=== PATIENT | female | born 1970 ===

== ENCOUNTER 2018-04-30 19:10 | Emergency (ER) | payer SELFPAY ==
[2018-04-30 19:16] VITALS: BMI 20.4
[2018-04-30 19:21] VITALS: RESP 18; TEMP 98.8
[2018-04-30] MEDS ORDERED: Apap-Butalbital-Caffeine 325-50-40mg Tab PO ONE (19:42)
--- NOTE | 2018-04-30 19:47 | ED PDOC ---
Arrival/HPI - General Historian: Patient - History of Present Illness Time/Duration: < week Symptom Onset: Gradual Symptom Course: Intermittent Severity Level: 3, Mild <Sol Robbins - Last Filed: 04/30/18 21:54> <MandyfaniTo alfred DO - Last Filed: 05/01/18 02:45> - General Chief Complaint: Headache Time Seen by Provider: 04/30/18 19:20 - History of Present Illness Narrative History of Present Illness (Text): 04/30/18 19:43 Patient is a 48 year old female with no significant past medical history who presented to the ED for intractable headache. Patient states that she does have a history of headaches in the past that last approximately 2-3 days. She reports that this headache started 5 days ago and has not gone away which prompted todays visit. Headache is intermittent and diffuse in nature. At its worse, pain is 8/10. Currently rates the pain a 3/10. She reports taking Tylenol 1 hour prior to arrival with relief in symptoms. Exacerbating factors include light and movement. Headaches are associated with nausea and dizziness. At this time she states that the headache is mild, denies dizziness, changes in vision/hearing, cp, palpitations, sob, abdominal pain, urinary symptoms. Patient recently immigrated from [facility] 1 month ago. LMP 04/30/18. (Sol Robbins) Past Medical History - Provider Review Nursing Documentation Reviewed: Yes - Past History Past History: No Previous - Infectious Disease Hx of Infectious Diseases: None - Past Medical History Past Medical History: No Previous - Cardiac Hx Cardiac Disorders: No - Pulmonary Hx Respiratory Disorders: No - Neurological Hx Neurological Disorder: No - HEENT Hx HEENT Disorder: No - Renal Hx Renal Disorder: No - Endocrine/Metabolic Hx Endocrine Disorders: No - Hematological/Oncological Hx Blood Disorders: No - Psychiatric Hx Substance Use: No - Surgical History Hx Appendectomy: Yes Hx Cholecystectomy: Yes - Anesthesia Hx Anesthesia Reactions: No Hx Malignant Hyperthermia: No <Sol Robbins - Last Filed: 04/30/18 21:54> Family/Social History - Physician Review Nursing Documentation Reviewed: Yes Family/Social History: Diabetes, Hypertension Smoking Status: Never Smoked Hx Alcohol Use: No Hx Substance Use: No <Sol Robbins - Last Filed: 04/30/18 21:54> Allergies/Home Meds <Sol Robbins - Last Filed: 04/30/18 21:54> <Polina To - Last Filed: 05/01/18 02:45> Allergies/Adverse Reactions: Allergies No Known Allergies Allergy (Verified 04/30/18 19:42) Review of Systems - Physician Review All systems were reviewed & negative as marked: Yes - Review of Systems Constitutional: Normal. absent: Fatigue, Fevers Eyes: Normal, Photophobia. absent: Vision Changes ENT: Normal. absent: Hearing Changes Respiratory: Normal. absent: SOB, Cough, Wheezing Cardiovascular: Normal. absent: Chest Pain, Palpitations, Calf Pain Gastrointestinal: Nausea. absent: Abdominal Pain, Constipation, Diarrhea, Vomiting Genitourinary Female: absent: Dysuria, Frequency, Hematuria Neurological: Headache. absent: Dizziness <Sol Robbins - Last Filed: 04/30/18 21:54> Physical Exam Vital Signs Reviewed: Yes Temperature: Afebrile Pulse: Regular Respiratory Rate: Normal Appearance: Positive for: Well-Appearing, Non-Toxic, Comfortable Pain Distress: Mild Mental Status: Positive for: Alert and Oriented X 3 - Systems Exam Head: Present: Atraumatic, Normocephalic Pupils: Present: PERRL Extroacular Muscles: Present: EOMI Conjunctiva: Present: Normal Mouth: Present: Moist Mucous Membranes Neck: Present: Normal Range of Motion Respiratory/Chest: Present: Clear to Auscultation, Good Air Exchange. No: Respiratory Distress Cardiovascular: Present: Regular Rate and Rhythm, Normal S1, S2 Abdomen: Present: Normal Bowel Sounds. No: Tenderness, Distention Back: Present: Normal Inspection Lower Extremity: Present: Normal Inspection Neurological: Present: CN II-XII Intact Skin: Present: Warm, Dry, Normal Color Psychiatric: Present: Alert, Oriented x 3 <Sol Robbins - Last Filed: 04/30/18 21:54> <To Fish DO - Last Filed: 05/01/18 02:45> Vital Signs Temp Pulse Resp BP Pulse Ox 04/30/18 20:09 98.8 F 68 18 140/78 98 04/30/18 19:11 98.8 F 72 18 145/81 97 Medical Decision Making <Sol Robbins - Last Filed: 04/30/18 21:54> <To Fish DO - Last Filed: 05/01/18 02:45> ED Course and Treatment: 04/30/18 19:49 Patient seen and examined at bedside. States that she is having a mild headache. Will order NS bolus, Reglan and Fioricet. 04/30/18 20:00 Patient is refusing IV fluids and Reglan. States that she just wants medication so she can go home. Will discharge with Fioricet and have patient establish care with the [facility]. (Sol Robbins) - Medication Orders Current Medication Orders: Discontinued Medications Acetaminophen/Butalbital/Caffeine (Fioricet) 1 tab PO ONCE ONE Stop: 04/30/18 19:43 Last Admin: 04/30/18 19:56 Dose: 1 tab MAR Pain Assessment Document 04/30/18 19:56 AURE (Rec: 04/30/18 19:56 LA [id number]) Pain Reassessment Is this a pain reassessment? No Sleep Is patient sleeping during reassessment? No Presence of Pain Presence of Pain Yes Pain Scale Used Pain Scale Used Numeric Location Pain Location Body Industrial Relations Officer Description Description Constant Intensity of Pain at present 8 Pain Behavior Guarding Sodium Chloride (Sodium Chloride 0.9%) 1,000 mls @ 999 mls/hr IV .Q1H1M STA Stop: 04/30/18 20:42 Last Admin: 04/30/18 20:01 Dose: Not Given Non-Admin Reason: Patient Refused Metoclopramide HCl (Reglan) 10 mg IVP STAT STA Stop: 04/30/18 19:43 Last Admin: 04/30/18 20:03 Dose: Not Given Non-Admin Reason: Patient Refused Comments: Pt refused IVP Administration Document 04/30/18 20:03 AURE (Rec: 04/30/18 19:56 AURE [id number]) Charges for Administration # of IVP Administrations 1 - PA / PRODUCTION WEIGHER / Resident Statement HEMA has reviewed & agrees with the documentation as recorded. HEMA has examined the patient and agrees with the treatment plan. <To Fish DO - Last Filed: 05/01/18 02:45> Disposition/Present on Arrival - Present on Arrival Any Indicators Present on Arrival: No History of DVT/PE: No History of Uncontrolled Diabetes: No Urinary Catheter: No History of Decub. Ulcer: No History Surgical Site Infection Following: None - Disposition Have Diagnosis and Disposition been Completed?: Yes Disposition Time: 20:05 Patient Plan: Discharge <Sol Robbins - Last Filed: 04/30/18 21:54> - Disposition Disposition Time: 19:50 <To Fish DO - Last Filed: 05/01/18 02:45> - Disposition Diagnosis: Headache Disposition: HOME/ ROUTINE Condition: GOOD Discharge Instructions (ExitCare): Headache, Adult (DC) Print Language: FRENCH Additional Instructions: ARIANA ALY, thank you for letting us take care of you today. Your provider was To Fish DO and you were treated for HEADACHE. The emergency medical care you received today was directed at your acute symptoms. If you were prescribed any medication, please fill it and take as directed. It may take several days for your symptoms to resolve. Return to the Emergency Department if your symptoms worsen, do not improve, or if you have any other problems. Please contact your doctor or call one of the physicians/clinics you have been referred to that are listed on the Patient Visit Information form that is included in your discharge packet. Bring any paperwork you were given at discharge with you along with any medications you are taking to your follow up visit. Our treatment cannot replace ongoing medical care by a primary care provider outside of the emergency department. Thank you for allowing the [facility] team to be part of your care today. Follow up with the clinic in 3-5 days for re-evaluation and further management. ARIANA ALY, natalie por dejarnos atenderlo hoy. Rios proveedor fue To Fish DO y usted recibi tratamiento por HEADACHE. La atencin mdica de emergencia que recibi hoy estaba dirigida a [place] sntomas agudos. Si le prescribieron algn medicamento, llnelo y tome segn las indicaciones. [place] s ntomas pueden tardar varios diaz en resolverse. Regrese al Departamento de Emergencia si [place] sntomas empeoran, no mejoran o si tiene algn otro problema. Comunquese con rios mdico o llame a fara de los mdicos / clnicas a los que ng sido referido que figura en el formulario de Informacin de visita del paciente que se incluye en rios paquete de ronald. Traiga todos los documentos que recibi al momento del ronald junto con los medicamentos que est tomando en rios visita de seguimiento. Nuestro tratamiento no puede reemplazar la atencin mdica en curso por un proveedor de atencin primaria fuera del departamento de emergencia. Natalie por permitir que el equipo de [facility] sea parte de rios cuidado hoy. Mike un seguimiento con la clnica en 3-5 diaz para la reevaluacin y la administracin adicional. Prescriptions: Acetaminophen/Butalbital/Caf [Fioricet] 1 tab PO Q6 PRN #15 tab PRN Reason: Headache Referrals: [facility] [Outside] - Follow up with primary Rosa Isela Painting MD [Staff Provider] - Follow up with primary Forms: [email or web address] (Yoruba)
[2018-04-30] MEDS: Sodium Chloride 0.9% 1,000 ML IV STA ×2 (19:56→20:01)
[2018-04-30 20:12] VITALS: BP 140/78; PULSE 68; O2SAT 98
== END 2018-04-30 20:09 | disposition home or self-care (01) ==
LOC: ED 19:10
DX: R51 Headache (principal)